=== PATIENT | male | born 1995 | race Caucasian/White ===

== ENCOUNTER → 2019-08-18 | Outpatient (CLI) | payer BC ==
--- NOTE | 2019-08-18 08:46 | US ---
EXAMINATION TYPE: US abdomen complete DATE OF EXAM: 08/18/2019 COMPARISON: NONE CLINICAL HISTORY: R10.9 unspecified abdominal pain. Patient states he gets sick after eating. NPO. EXAM MEASUREMENTS: Liver Length: 14.4 cm Gallbladder Wall: 0.2 cm CBD: 0.2 cm Spleen: 9.4 cm Right Kidney: 10.5 x 4.6 x 3.6 cm Left Kidney: 10.4 x 5.2 x 5.6 cm Pancreas: wnl Liver: wnl Gallbladder: wnl, folds seen Evidence for sonographic Roman's sign: neg CBD: wnl Spleen: wnl Right Kidney: wnl Left Kidney: wnl Upper IVC: wnl Abd Aorta: No AAA visualized The visualized liver is homogenous. The intrahepatic portion of the IVC and visualized abdominal aor ta are within normal limits. There is no evidence of shadowing mobile cholelithiasis. Common bile d uct is unremarkable. The visualized portions of the pancreas are homogenous. The spleen is unremark able. Kidneys are symmetric and free of hydronephrosis. No renal lesions are seen on images saved. No ascites noted. IMPRESSION: No acute findings are evident.
== END | disposition home or self-care (01) ==
LOC: RADUSWWP 07:56
PROVIDERS: ATTEND Internal Medicine
DX: R10.9 Unspecified abdominal pain (principal)
CPT/HCPCS: 76700

== ENCOUNTER 2020-05-25 20:19 | Emergency (ER) | payer BC, OTHER ==
--- NOTE | 2020-05-25 20:33 | ED ---
Upper Extremity HPI <Cole Matthew - Last Filed: 05/25/20 22:17> - General Source: patient Mode of arrival: ambulatory Limitations: no limitations <Tracy Canada - Last Filed: 05/27/20 00:13> - General Chief Complaint: Extremity Injury, Upper Time Seen by Provider: 05/25/20 20:20 - History of Present Illness Initial Comments: Patient is a 25-year-old previously healthy, [id number] male who presents to the emergency room and after he sustained a wrist injury. The patient states that he was sliding into second base with his left arm outstretched behind him. When the patient the ground he had pain and noted deformity to his left hand. Reports to pain with movement in his fingers. Admits to numbness in his hands. He was evaluated by a nurse on scene and was instructed to come to the emergency department for evaluation. Denies any other injuries. No other alleviating, precipitating or modifying factors (Tracy Canada) - Related Data Previous Rx's Medication Instructions Recorded Hydrocodone/Acetaminophen [[place] 1 tab PO Q4HR PRN #18 tab 05/25/20 5-325] Allergies Allergy/AdvReac Type Severity Reaction Status Date / Time No Known Allergies Allergy Verified 05/25/20 20:23 Review of Systems ROS Other: All systems not noted in ROS Statement are negative. <Cole Matthew - Last Filed: 05/25/20 22:17> ROS Other: All systems not noted in ROS Statement are negative. <Tracy Canada - Last Filed: 05/27/20 00:13> ROS Statement: Those systems with pertinent positive or pertinent negative responses have been documented in the HPI. Past Medical History Past Medical History: No Reported History History of Any Multi-Drug Resistant Organisms: None Reported Past Surgical History: No Surgical Hx Reported Past Psychological History: No Psychological Hx Reported Smoking Status: Current every day smoker Past Alcohol Use History: Occasional Past Drug Use History: Marijuana <Tracy Canada - Last Filed: 05/27/20 00:13> General Exam Limitations: no limitations General appearance: alert, in no apparent distress Extremities exam: Present: other (obvious deformity left wrist. No pain at the shoulder or elbow. Intact abduction of the finger. Pain with extension of the wrist. Sensation intact distal to area of injury. 2+ radial and ulnar pulses ) <Tracy Canada A - Last Filed: 05/27/20 00:13> Course Vital Signs 05/25/20 05/25/20 05/25/20 20:21 20:57 21:21 Temperature 99.4 F Pulse Rate 66 78 71 Respiratory 18 16 12 Rate Blood Pressure 132/83 125/76 132/81 O2 Sat by Pulse 100 100 100 Oximetry 05/25/20 05/25/20 05/25/20 21:23 21:28 21:33 Temperature Pulse Rate 72 61 60 Respiratory 17 12 18 Rate Blood Pressure 130/72 115/75 127/82 O2 Sat by Pulse 100 99 Oximetry 05/25/20 05/25/20 05/25/20 21:35 21:50 22:05 Temperature Pulse Rate 57 L 60 55 L Respiratory 16 18 17 Rate Blood Pressure 130/74 118/73 114/68 O2 Sat by Pulse 100 100 100 Oximetry 05/25/20 05/25/20 05/25/20 22:20 22:35 22:46 Temperature 98.5 F Pulse Rate 56 L 53 L Respiratory 17 16 Rate Blood Pressure 115/74 113/78 O2 Sat by Pulse 98 100 Oximetry Procedures - Orthopedic Fracture Reduction Fracture #1 Consent Obtained: verbal consent, written consent Side: left Fracture Reduction Location: radius Analgesia: procedural sedation Technique: direct manipulation Post Reduction X-rays Demonstrate: anatomical reduction Post-Reduction Neuro Exam: intact Post-Reduction Vascular Exam: intact Splint Applied: Yes Patient Tolerated Procedure: well <Cole Matthew - Last Filed: 05/25/20 22:17> - Procedural Sedation Procedural Sedation Start Time: 21:20 Procedural Sedation Stop Time: 21:35 Indications: fracture/dislocation reduction ASA Class: I Mallampati Airway Score: 1 Time of Last PO Intake: 20:00 Preparation: security monitor applied, pulse oximeter, capnometry used, supplemental O2 applied, suction/airway equipment at bedside IV Propofol Dose (mgs): 190 Complications: none Patient Tolerated Procedure: well, no complications <Tracy Canada - Last Filed: 05/27/20 00:13> Medical Decision Making <Tracy Canada - Last Filed: 05/27/20 00:13> - Medical Decision Making Upon arrival patient is placed into room 5. A thorough history and physical exam is performed. X-ray performed of the left wrist demonstrates a distal radius fracture. Patient does undergo procedural sedation. Reduction performed by Dr. Matthew. Repeat x-ray demonstrates alignment of the distal radius fracture. This time the patient be discharged home. Given a prescription for [place]. He does sign an opiate start talking form. He'll follow up with his orthopedic doctor, Dr. Oh for further treatment options. Return to the emergency room for any new or worsening symptoms. Patient was in agreement to plan is discharge home in stable condition (Tracy Canada) Disposition <Cole Matthew - Last Filed: 05/25/20 22:17> Is patient prescribed a controlled substance at d/c from ED?: Yes When asked, does pt state using other controlled substances?: No If prescribed controlled substance>3 days was MAPS reviewed?: Prescribed <3 Days If opioid is for acute pain is fill amount 7 days or less?: Yes If Rx opioid, was Start Talking consent form obtained?: Yes Time of Disposition: 22:16 <Tracy Canada - Last Filed: 05/27/20 00:13> Clinical Impression: Left radial fracture, Fall Disposition: HOME SELF-CARE Condition: Stable Instructions (If sedation given, give patient instructions): Wrist Fracture in Adults (ED) Additional Instructions: Please follow-up with the orthopedic doctor. Return to the emergency room for any new or worsening symptoms. Rest, ice and elevate the extremity. Return to the emergency room for any new or worsening symptoms Prescriptions: Hydrocodone/Acetaminophen [[place] 5-325] 1 tab PO Q4HR PRN #18 tab PRN Reason: Pain Referrals: Navin Cheema MD [Primary Care Provider] - 1-2 days Wes Oh DO [Doctor of Osteopathic Medicine] - 1-2 days
[2020-05-25] MEDS ORDERED: PROPOFOL 10 MG/ML 20 ML VIAL IV ONE ×2 (20:44→21:27)
--- NOTE | 2020-05-25 20:58 | XR ---
PROCEDURE: XR wrist complete LT - 3V DATE AND TIME: 05/25/2020 8:41 PM CLINICAL INDICATION: Pain after injury TECHNIQUE: Department protocol COMPARISON: None FINDINGS: There is a comminuted apex-volar transverse fracture of the distal radius, with approximate ly 1 cm posterior displacement and 1.5 cm override. There is involvement of the distal radioulnar joint. There is no definite involvement of the radiocarpal joint. No other fractures. IMPRESSION: Distal radius fracture.
[2020-05-25] MEDS ORDERED: MORPHINE SULFATE 4 MG/ML SYRINGE IVP STA (21:35)
--- NOTE | 2020-05-25 22:05 | XR ---
PROCEDURE: XR wrist limited LT - 2 views post reduction DATE AND TIME: 05/25/2020 9:35 PM CLINICAL INDICATION: PHH; post reduction TECHNIQUE: AP and lateral post reduction views were obtained. COMPARISON: None FINDINGS: There is interval improvement in the anatomic positioning and alignment of the distal radiu s fracture fragments. IMPRESSION: Postreduction study.
[2020-05-25 22:46] VITALS: BP 113/78; PULSE 53; RESP 16
[2020-05-25 22:47] VITALS: TEMP 98.5
== END 2020-05-25 22:57 | disposition home or self-care (01) ==
LOC: EC 20:19
DX: S52.592A Other fractures of lower end of left radius, initial encounter for closed fracture (principal); F17.200 Nicotine dependence, unspecified, uncomplicated; X58.XXXA Exposure to other specified factors, initial encounter
CPT/HCPCS: 73100; 73110; 99283; 25605; 99152; 96374; J2270; J2704

== ENCOUNTER 2020-06-26 11:34 | Emergency (ER) | payer OTHER ==
[2020-06-26 11:42] VITALS: BP 122/84; PULSE 70; RESP 18; TEMP 97.3
[2020-06-26] MEDS ORDERED: KETOROLAC 15 MG/ML 1 ML VIAL IM STA (12:24)
[2020-06-26] MEDS ORDERED: ACET/COD 300 MG/30 MG STARTER PACK 6 TAB BTL PO STA (12:24)
--- NOTE | 2020-06-26 12:33 | ED ---
Extremity Problem HPI - General Chief complaint: Extremity Problem,Nontraumatic Stated complaint: Post 4weeks wrist break, loss feeling Time Seen by Provider: 06/26/20 11:43 Source: patient Mode of arrival: ambulatory Limitations: no limitations - History of Present Illness Initial comments: Patient is a 25-year-old male presenting to emergency with chief complaint of arm pain. Patient reports he had a distal radial fracture about one month ago and followed up with an metalworking specialist and was placed in a cast. Patient states he has not been having any significant issues but over the last 2-3 days he has been moving to a new house and has been using his hand more than he should. Patient reports she has not taken any medication to alleviate the pain. Patient reports he is having pain along his fourth and fifth digit that extends along the medial aspect of the forearm. States he does not have any numbness but does have occasional tingling. States he is able to move all of his fingers without any difficulties. States he decided to come to the ED instead of going to the orthopedic doctor. - Related Data Previous Rx's Medication Instructions Recorded Hydrocodone/Acetaminophen [[place] 1 tab PO Q4HR PRN #18 tab 05/25/20 5-325] Allergies Allergy/AdvReac Type Severity Reaction Status Date / Time No Known Allergies Allergy Verified 06/26/20 11:42 Review of Systems ROS Statement: Those systems with pertinent positive or pertinent negative responses have been documented in the HPI. ROS Other: All systems not noted in ROS Statement are negative. Past Medical History Past Medical History: No Reported History History of Any Multi-Drug Resistant Organisms: None Reported Past Surgical History: No Surgical Hx Reported Past Psychological History: No Psychological Hx Reported Smoking Status: Current every day smoker Past Alcohol Use History: Occasional Past Drug Use History: Marijuana General Exam Limitations: no limitations General appearance: alert, in no apparent distress Head exam: Present: atraumatic, normocephalic, normal inspection Eye exam: Present: normal appearance, PERRL, EOMI Pupils: Present: normal accommodation ENT exam: Present: normal exam, normal oropharynx, mucous membranes moist, TM's normal bilaterally, normal external ear exam Neck exam: Present: normal inspection, full ROM. Absent: tenderness Respiratory exam: Present: normal lung sounds bilaterally. Absent: respiratory distress, wheezes, rales Cardiovascular Exam: Present: regular rate, normal rhythm, normal heart sounds Extremities exam: Present: normal inspection (Cast is in place. No ecchymosis or erythema in the visible areas of the left arm.), full ROM (Patient is able to move all of his fingers on the left hand.), tenderness (Pain along the fifth and fourth digits to palpation. Some palpable tenderness along the proximal aspect of the forearm that is not covered by the cast. The area is soft.), normal capillary refill (Less than 2 seconds capillary refill in all the fingers of the left hand.), other (Sensation intact in all of his fingers of the left hand.). Absent: pedal edema, joint swelling, calf tenderness Back exam: Present: normal inspection, full ROM. Absent: tenderness, CVA tenderness (R), CVA tenderness (L) Neurological exam: Present: alert, oriented X3 Psychiatric exam: Present: normal affect, normal mood Skin exam: Present: warm, dry, intact, normal color Course Vital Signs 06/26/20 11:36 Temperature 97.3 F L Pulse Rate 70 Respiratory 18 Rate Blood Pressure 122/84 O2 Sat by Pulse 100 Oximetry Medical Decision Making - Medical Decision Making Patient is a 25-year-old male presenting to the emergency department with a chief complaint of arm pain. Physical examination, patient has full range of motion in all of his fingers and normal capillary refill. He is neurovascularly intact. He has full sensation in all of his fingers and the hand. His pain seems to be along the distribution of the ulnar nerve. I have low suspicion for compartment syndrome at this time. Patient does not want his cast off. He did not take any medication to alleviate his symptoms. Patient was given Toradol in the ED and will be discharged with Tylenol 3. Advised not to drive or operative heavy machinery when taking medication. He is advised to follow-up with his metalworking specialist as soon as possible. Strict return parameters were thoroughly discussed with patient was understanding and agreeable. Case discussed with physician. Disposition Clinical Impression: Left arm pain Disposition: HOME SELF-CARE Condition: Stable Instructions (If sedation given, give patient instructions): Wrist Fracture in Adults (ED) Additional Instructions: Follow with metalworking specialist. Take prescribed medication as directed. Do not drive or operate heavy machinery when taking medication. Return to emergency department if symptoms worsen. Is patient prescribed a controlled substance at d/c from ED?: No Referrals: Navin Cheema MD [Primary Care Provider] - 1-2 days Time of Disposition: 12:33
== END 2020-06-26 12:41 | disposition home or self-care (01) ==
LOC: EC 11:34
DX: M79.602 Pain in left arm (principal); R20.2 Paresthesia of skin; M79.645 Pain in left finger(s); F17.200 Nicotine dependence, unspecified, uncomplicated; Z87.81 Personal history of (healed) traumatic fracture
CPT/HCPCS: 96372; 99283; J1885

== ENCOUNTER 2023-03-23 10:54 | Emergency (ER) | payer OTHER ==
[2023-03-23 11:01] VITALS: RESP 18; TEMP 98.6
--- NOTE | 2023-03-23 11:50 | ED ---
General Adult HPI - General Chief complaint: Extremity Problem,Nontraumatic Stated complaint: R knee pain Time Seen by Provider: 03/23/23 11:18 Source: patient, RN notes reviewed Mode of arrival: ambulatory - History of Present Illness Initial comments: 27-year-old male presents to the emergency department chief complaint of right knee pain 5 days. Patient states that it is worse when he walks, squats down, or bends over. He states that it is right above his kneecap. He denies any erythema, swelling, fever, chills. He states he takes no daily medication. He denies medication ALLERGIES. - Related Data Previous Rx's Medication Instructions Recorded Hydrocodone/Acetaminophen [[place] 1 tab PO Q4HR PRN #18 tab 05/25/20 5-325] Allergies Allergy/AdvReac Type Severity Reaction Status Date / Time No Known Allergies Allergy Verified 03/23/23 11:01 Review of Systems ROS Statement: Those systems with pertinent positive or pertinent negative responses have been documented in the HPI. ROS Other: All systems not noted in ROS Statement are negative. Past Medical History Past Medical History: No Reported History History of Any Multi-Drug Resistant Organisms: None Reported Past Surgical History: Orthopedic Surgery Past Psychological History: No Psychological Hx Reported Smoking Status: Vaper Past Alcohol Use History: Occasional Past Drug Use History: Marijuana General Exam Limitations: no limitations General appearance: alert, in no apparent distress Head exam: Present: atraumatic, normocephalic, normal inspection Eye exam: Present: normal appearance ENT exam: Present: normal exam, mucous membranes moist Neck exam: Present: normal inspection. Absent: tenderness, meningismus, lymphadenopathy Respiratory exam: Present: normal lung sounds bilaterally. Absent: respiratory distress, wheezes, rales, rhonchi, stridor Cardiovascular Exam: Present: regular rate, normal rhythm, normal heart sounds. Absent: systolic murmur, diastolic murmur, rubs, gallop, clicks Extremities exam: Present: full ROM, tenderness (quad tendon), normal capillary refill, other (DP and PT pulses 2+, right knee nonerythematous, nonedematous). Absent: pedal edema, joint swelling, calf tenderness Back exam: Present: normal inspection Neurological exam: Present: alert, oriented X3 Psychiatric exam: Present: normal affect, normal mood Skin exam: Present: warm, dry, intact, normal color. Absent: rash Course Vital Signs 03/23/23 03/23/23 10:59 12:42 Temperature 98.6 F Pulse Rate 74 76 Respiratory 18 18 Rate Blood Pressure 151/98 132/68 O2 Sat by Pulse 99 99 Oximetry Medical Decision Making - Medical Decision Making Was pt. sent in by a medical professional or institution (, [facility], LICENSED MARRIAGE AND FAMILY THERAPIST, urgent care, hospital, or fdc...) When possible be specific @ -No Did you speak to anyone other than the patient for history (EMS, parent, family, police, friend...)? What history was obtained from this source @ -No Did you review nursing and triage notes (agree or disagree)? Why? @ -I reviewed and agree with nursing and triage notes Were old charts reviewed (outside hosp., previous admission, EMS record, old EKG, old radiological studies, urgent care reports/EKG's, fdc records)? Report findings @ -No old charts were reviewed Differential Diagnosis (chest pain, altered mental status, abdominal pain women, abdominal pain men, vaginal bleeding, weakness, fever, dyspnea, syncope, headache, dizziness, GI bleed, back pain, seizure, CVA, palpatations, mental health, musculoskeletal)? @ -Differential Musculoskeletal Muscular strain, contusion, ligament sprain, fracture, arthritis, septic arthritis, bursitis, cellulitis, muscle spasm, nerve compression, DVT, arterial occlusion, herpes zoster, electrolyte abnormality, tumor.... This is not meant to be in all inclusive list EKG interpreted by me (3pts min.). @ -None X-rays interpreted by me (1pt min.). @ -X-ray of the right knee showed no evidence for acute fracture CT interpreted by me (1pt min.). @ -None done U/S interpreted by me (1pt. min.). @ -None done What testing was considered but not performed or refused? (CT, X-rays, U/S, labs)? Why? @ -None What meds were considered but not given or refused? Why? @ -None Did you discuss the management of the patient with other professionals (professionals i.e. [facility] Ashley, LICENSED MARRIAGE AND FAMILY THERAPIST, lab, RT, psych nurse, social service worker, loop tender, teacher, small business banking officer, bilingual case manager)? Give summary @ -No Was smoking cessation discussed for >3mins.? @ -No Was critical care preformed (if so, how long)? @ -No Were there social determinants of health that impacted care today? How? (Homelessness, low income, unemployed, alcoholism, drug addiction, transportation, low edu. Level, literacy, decrease access to med. care, usp, rehab)? @ -No Was there de-escalation of care discussed even if they declined (Discuss DNR or withdrawal of care, Hospice)? DNR status @ -No What co-morbidities impacted this encounter? (DM, HTN, Smoking, COPD, CAD, Cancer, CVA, ARF, Chemo, Hep., AIDS, mental health diagnosis, sleep apnea, morbid obesity)? @ -None Was patient admitted / discharged? Hospital course, mention meds given and route, prescriptions, significant lab abnormalities, going to OR and other pertinent info. @ -Discharged. Patient presented to emergency department chief complaint of right knee pain 5 days. The knee joint is nonerythematous and nonedematous. Patient has good range of motion of the right knee. He states that the pain is right above his kneecap and is worse with squatting and bending motions. X-ray of the right knee show no evidence for acute fracture. Patient was advised that this is likely overuse of the quadriceps tendon as he is been increasingly active. Patient advised take Motrin for the pain as needed and rest, ice, elevate, compress. Patient discharged in stable condition. Case discussed with my Attending, Dr. Canada Undiagnosed new problem with uncertain prognosis? @ -No Drug Therapy requiring intensive monitoring for toxicity (Heparin, Nitro, Insulin, Cardizem)? @ -No Were any procedures done? @ -No Diagnosis/symptom? @ -Knee pain Acute, or Chronic, or Acute on Chronic? @ -Acute Uncomplicated (without systemic symptoms) or Complicated (systemic symptoms)? @ -Uncomplicated Side effects of treatment? @ -No Exacerbation, Progression, or Severe Exacerbation? @ -No Poses a threat to life or bodily function? How? (Chest pain, [place], [place], pneumonia, PE, COPD, DKA, ARF, appy, cholecystitis, CVA, Diverticulitis, Homicidal, Suicidal, threat to staff... and all critical care pts) @ -No Disposition Clinical Impression: Strain of right quadriceps tendon Disposition: HOME SELF-CARE Condition: Stable Instructions (If sedation given, give patient instructions): P.R.I.C.E. Treatment (ED) Additional Instructions: Please take ibuprofen as needed for pain. Rest, elevate, and ice the knee. Follow up with orthopedics if you do not have improvement in the next 1-2 weeks. Return to the emergency department for new or worsening symptoms. Is patient prescribed a controlled substance at d/c from ED?: No Referrals: None,Stated [Primary Care Provider] - 1-2 days Wes Oh DO [Doctor of Osteopathic Medicine] - 1-2 days Time of Disposition: 12:30
--- NOTE | 2023-03-23 12:06 | XR ---
EXAMINATION TYPE: XR knee complete RT DATE OF EXAM: 03/23/2023 COMPARISON: None HISTORY: Pain TECHNIQUE: 3 view right knee FINDINGS: Joint spaces are preserved. No joint effusion is evident. No acute fracture or dislocation is evident. Follow up exams can be performed 7-10 days from acute trauma for continued pain. IMPRESSION: 1. No acute osseous abnormality right knee.
[2023-03-23 12:43] VITALS: BP 132/68; PULSE 76
== END 2023-03-23 12:43 | disposition home or self-care (01) ==
LOC: EC 10:54
DX: S76.111A Strain of right quadriceps muscle, fascia and tendon, initial encounter (principal); F17.290 Nicotine dependence, other tobacco product, uncomplicated; F12.90 Cannabis use, unspecified, uncomplicated; X50.9XXA Other and unspecified overexertion or strenuous movements or postures, initial encounter
CPT/HCPCS: 99283

== ENCOUNTER 2024-01-23 11:51 | Emergency (ER) | payer OTHER ==
--- NOTE | 2024-01-23 12:08 | ED ---
Wound/Laceration HPI - General Chief Complaint: Wound/Laceration Stated Complaint: finger lac-[facility] Time Seen by Provider: 01/23/24 12:01 Source: patient, RN notes reviewed Mode of arrival: ambulatory Limitations: no limitations - History of Present Illness Initial Comments: Is a 28-year-old male who presents emergency department chief complaint of a laceration to his thumb at work. States that he was at work using a razor blade to remove adhesive stickers from glass when he accidentally slipped cutting his thumb. Patient has full mobility and sensation intact to the digit. Is unaware of when his last tetanus vaccine was, believes it was when he was 18. no other acute complaints at this time. - Related Data Previous Rx's Medication Instructions Recorded Hydrocodone/Acetaminophen [[place] 1 tab PO Q4HR PRN #18 tab 05/25/20 5-325] Allergies Allergy/AdvReac Type Severity Reaction Status Date / Time No Known Allergies Allergy Verified 01/23/24 12:03 Review of Systems ROS Statement: Those systems with pertinent positive or pertinent negative responses have been documented in the HPI. ROS Other: All systems not noted in ROS Statement are negative. Past Medical History Past Medical History: No Reported History History of Any Multi-Drug Resistant Organisms: None Reported Past Surgical History: Orthopedic Surgery Past Psychological History: No Psychological Hx Reported Smoking Status: Current every day smoker, Vaper Past Alcohol Use History: Occasional Past Drug Use History: Marijuana General Exam Limitations: no limitations General appearance: alert, in no apparent distress Head exam: Present: atraumatic, normocephalic, normal inspection Eye exam: Present: normal appearance, PERRL, EOMI. Absent: scleral icterus, conjunctival injection, periorbital swelling ENT exam: Present: normal exam, mucous membranes moist Neck exam: Present: normal inspection. Absent: tenderness, meningismus, lymphadenopathy Respiratory exam: Present: normal lung sounds bilaterally. Absent: respiratory distress, wheezes, rales, rhonchi, stridor Cardiovascular Exam: Present: regular rate, normal rhythm, normal heart sounds. Absent: systolic murmur, diastolic murmur, rubs, gallop, clicks GI/Abdominal exam: Present: soft, normal bowel sounds. Absent: distended, tenderness, guarding, rebound, rigid Left Hand Wrist exam: Present: laceration (2 cm laceration on the anterior first digit) Back exam: Present: normal inspection Neurological exam: Present: alert, oriented X3, CN II-XII intact Psychiatric exam: Present: normal affect, normal mood Skin exam: Present: warm, dry, intact, normal color. Absent: rash Course Vital Signs 01/23/24 12:01 Temperature 98.2 F Pulse Rate 67 Respiratory 20 Rate Blood Pressure 122/62 O2 Sat by Pulse 99 Oximetry Medical Decision Making - Medical Decision Making Was pt. sent in by a medical professional or institution ([facility] Ashley, [employer] SCIENTIST, urgent care, hospital, or detention...) When possible be specific @ -No Did you speak to anyone other than the patient for history (EMS, parent, family, police, friend...)? What history was obtained from this source @ -No Did you review nursing and triage notes (agree or disagree)? Why? @ -I reviewed and agree with nursing and triage notes Were old charts reviewed (outside hosp., previous admission, EMS record, old EKG, old radiological studies, urgent care reports/EKG's, detention records)? Report findings @ -No old charts were reviewed Differential Diagnosis (chest pain, altered mental status, abdominal pain women, abdominal pain men, vaginal bleeding, weakness, fever, dyspnea, syncope, headache, dizziness, GI bleed, back pain, seizure, CVA, palpatations, mental health, musculoskeletal)? @ -laceration EKG interpreted by me (3pts min.). @ -[none X-rays interpreted by me (1pt min.). @ -None done CT interpreted by me (1pt min.). @ -None done U/S interpreted by me (1pt. min.). @ -None done What testing was considered but not performed or refused? (CT, X-rays, U/S, labs)? Why? @ -None What meds were considered but not given or refused? Why? @ -None Did you discuss the management of the patient with other professionals (professionals i.e. VALERIA Ashley, [employer] SCIENTIST, lab, RT, psych nurse, social welfare research worker, remediation consultant, teacher, technology officer, mattress spring encaser)? Give summary @ -No Was smoking cessation discussed for >3mins.? @ -No Was critical care preformed (if so, how long)? @ -No Were there social determinants of health that impacted care today? How? (Homelessness, low income, unemployed, alcoholism, drug addiction, transportation, low edu. Level, literacy, decrease access to med. care, care home, rehab)? @ -No Was there de-escalation of care discussed even if they declined (Discuss DNR or withdrawal of care, Hospice)? DNR status @ -No What co-morbidities impacted this encounter? (DM, HTN, Smoking, COPD, CAD, Cancer, CVA, ARF, Chemo, Hep., AIDS, mental health diagnosis, sleep apnea, morbid obesity)? @ -None Was patient admitted / discharged? Hospital course, mention meds given and route, prescriptions, significant lab abnormalities, going to OR and other pertinent info. @ -Discharge. 28-year-old male with complaint of a laceration. On examination patient noted to have roughly 2 cm laceration on his anterior right first digit. The laceration is well-approximated. Area was thoroughly irrigated. A micro mend was placed over the laceration. Discussion with the patient to keep the area clean and dry. He is able to remove the micro mend in the next 5 to 7 days. Patient also given tetanus vaccine due to this being over 10 years ago. Stable for discharge home. Case discussed with Dr. Underwood Undiagnosed new problem with uncertain prognosis? @ -No Drug Therapy requiring intensive monitoring for toxicity (Heparin, Nitro, Insulin, Cardizem)? @ -No Were any procedures done? @ -No Diagnosis/symptom? @ -laceration Acute, or Chronic, or Acute on Chronic? @ -Acute Uncomplicated (without systemic symptoms) or Complicated (systemic symptoms)? @ -uncomplicated Side effects of treatment? @ -No Exacerbation, Progression, or Severe Exacerbation? @ -No Poses a threat to life or bodily function? How? (Chest pain, [place], [place], pneumonia, PE, COPD, DKA, ARF, appy, cholecystitis, CVA, Diverticulitis, Homicidal, Suicidal, threat to staff... and all critical care pts) @ -No Disposition Clinical Impression: Laceration Narrative: Please return to the Emergency Department if symptoms worsen or any other concerns. Remove bandage within the next 4 to 5 days. Keep area clean and dry Disposition: HOME SELF-CARE Condition: Good Instructions (If sedation given, give patient instructions): Laceration (ED) Is patient prescribed a controlled substance at d/c from ED?: No Referrals: None,Stated [Primary Care Provider] - 1-2 days Time of Disposition: 12:24
[2024-01-23] MEDS: DIPH,PERTUS(ACELL)TETVAC-LF 0.5 ML VIAL IM ONE (12:19)
[2024-01-23 12:34] VITALS: BP 122/62; PULSE 67; RESP 20; TEMP 98.2
== END 2024-01-23 12:52 | disposition home or self-care (01) ==
LOC: EC 11:51
DX: S61.011A Laceration without foreign body of right thumb without damage to nail, initial encounter (principal); F17.290 Nicotine dependence, other tobacco product, uncomplicated; F12.90 Cannabis use, unspecified, uncomplicated; Z23 Encounter for immunization; W45.8XXA Other foreign body or object entering through skin, initial encounter
CPT/HCPCS: 10120; 90471; 90715; 99282